=== PATIENT | male | born 1965 | race Caucasian/White ===

== ENCOUNTER 2017-10-29 07:03 | Day surgery (SDC) | payer OTHER ==
[2017-10-27 15:21] VITALS: BMI 33.9
[2017-10-29] MEDS ORDERED: DEXAMETHASONE SOD PHOSPHATE/PF 10 MG/ML SDV ONE (09:34)
[2017-10-29] MEDS ORDERED: ROPIVACAINE HCL 0.5% 30ML VIAL ONE (09:34)
[2017-10-29] MEDS ORDERED: MIDAZOLAM HCL 2 MG/2 ML SINGLE DOSE VIAL ONE (09:34)
[2017-10-29] MEDS ORDERED: PROPOFOL 20 ML ONE (10:08)
[2017-10-29] MEDS ORDERED: ONDANSETRON 4 MG/2 ML VIAL IVPUSH PRN (10:30)
[2017-10-29] MEDS ORDERED: LACTATED RINGERS SOLUTION 1,000 ML IV SCH (10:30)
[2017-10-29] MEDS ORDERED: PROMETHAZINE HCL 25 MG/1 ML VIAL IVPUSH PRN (10:30)
[2017-10-29] MEDS ORDERED: oxyCODONE HCL 5 MG TABLET PO PRN (10:30)
[2017-10-29] MEDS ORDERED: ceFAZolin SODIUM 1 GM VIAL ONE (10:31)
[2017-10-29] MEDS ORDERED: ONDANSETRON 4 MG/2 ML VIAL ONE ×2 (10:52→12:28)
[2017-10-29] MEDS ORDERED: DEXAMETHASONE SOD PHOSPHATE 4 MG/1 ML VIAL ONE (10:52)
[2017-10-29] MEDS ORDERED: KETOROLAC TROMETHAMINE 30 MG/1 ML VIAL ONE (10:52)
[2017-10-29] MEDS ORDERED: oxyCODONE HCL 5 MG TABLET ONE (13:53)
[2017-10-29 14:52] VITALS: BP 142/91; PULSE 95; TEMP 98.2
--- NOTE | 2017-10-31 23:18 | OP ---
DATE OF OPERATION: 10/29/2017 SURGEON: Fareed Price MD MOOSE HUNTER: NACHO Reynolds PREOPERATIVE DIAGNOSIS: 1. Left shoulder rotator cuff tear. 2. Left shoulder adhesive capsulitis. 3. Left shoulder impingement syndrome. 4. Left shoulder acromioclavicular degenerative joint disease. 5. Left shoulder superior labral tear with anterior and posterior synovitis. 6. Left shoulder long head biceps tear. POSTOPERATIVE DIAGNOSIS: 1. Left shoulder rotator cuff tear. 2. Left shoulder adhesive capsulitis. 3. Left shoulder impingement syndrome. 4. Left shoulder acromioclavicular degenerative joint disease. 5. Left shoulder superior labral tear with anterior and posterior synovitis. 6. Left shoulder long head biceps tear. PROCEDURE: 1. Left shoulder arthroscopy with arthroscopic rotator cuff repair. 2. Left shoulder arthroscopy with biceps tendon repair. 3. Left shoulder arthroscopy with lysis of adhesions. 4. Left shoulder arthroscopy with subacromial decompression. 5. Left shoulder arthroscopy with resection of the clavicle-acromioclavicular joint. 6. Left shoulder arthroscopy with debridement. CPT codes 27794, 64605, 00984, 38675, 10049, 56264. FINDINGS: 1. Extensive tearing of biceps tendon with anterior dislocation. 2. Glenohumeral synovitis. 3. Superior labral, anterior and posterior with type 1 and type 4 portions of tearing. 4. Full-thickness supraspinatus rotator cuff tear. 5. Posterior labral fraying. 6. Type 2 acromion and anterior and lateral spurring. 7. Inferior superior clavicle-acromioclavicular degenerative joint disease. 8. Diffuse and thickened scar tissue and adhesions anterior and lateral subacromial space. REPAIR TYPE: Suture was placed into the biceps tendon and secured in biceps tendon, which was then released from the superior labrum and debrided. This was secured a bleeding bone bed and incorporated into the rotator cuff repair. Three mattress sutures were then placed into the rotator cuff and secured to bleeding bone bed using the Opus technique. This was then oversewn and incorporated into the biceps tendon. PROCEDURE: Informed consent was obtained. The patient was taken to the operating room where the upper extremity was prepped and draped in a sterile fashion. The shoulder was manipulated for a full range of motion. Posterior incision portal was made and directed to glenohumeral joint. Under direct visualization, an anterior incision and portal was made. Extensive synovitis, as well as chondral injuries throughout the glenohumeral joint were dbrided and removed. Any identified labral injuries, including superior labral tear, anterior and posterior, and anterior labrum torn portions were removed as well. Rotator cuff was visualized and noted to have full-thickness tear. The edges were debrided. Posterior incision portal was redirected to subacromial space where a lateral incision portal was made. Excessive and thickened scar tissue noted throughout the subacromial space, including bursal and scar tissue, were removed. The type 2 acromion was converted into a flattened type 1 using a katty for subacromial decompression. Distal inferior spur at the distal clavicle was also dbrided with the use of accessory portal in the AC joint. The edges of the rotator cuff were identified. Sutures were placed into the rotator cuff and secured using anchors throughout the greater tuberosity. Prior to securing, a bleeding bed was made using a small katty, creating a bleeding surface of the rotator cuff insertion. The shoulder was then drained. A single suture as placed on all portals and a sterile dressing was placed. The patient was transferred to the recovery room without complication. FAREED PRICE M.D. [id number]
--- NOTE | 2017-10-31 23:45 | OP ---
DATE OF OPERATION: 10/29/2017 NOTE: Please note this is a separate procedure. SURGEON: Fareed Price M.D. BUSINESS PARTNER: Kathy Reynolds PREOPERATIVE DIAGNOSIS: Left hip trochanteric bursa with thickened scar tissue and hematoma. POSTOPERATIVE DIAGNOSIS: Left hip trochanteric bursa with thickened scar tissue and hematoma. PROCEDURE: Irrigation and debridement of dorsal tissue with packing of wound and scraping of the bursa with excision. DESCRIPTION OF PROCEDURE: . Needle was placed into the hematoma to secure the entrance into the area. A 6-cm incision was made, split through the fascial layer, and the fluid was irrigated out of the hematoma among the bursa. A long curet was then placed into the area and scraped along the area to remove the chronic ritchie and to allow for healing. This was then irrigated with copious amounts of irrigation and packed with 1/2-inch Ioban to allow for drainage. Skin was closed with 2-0 nylon single interrupted sutures leaving the Ioban out of the wound. Sterile dressing was placed, and patient was transferred to recovery without complications. FAREED PRICE M.D. [id number]
--- NOTE | 2017-11-01 18:22 | PATH ---
Surgical Pathology Report Patient Name: KEVON PARISH [facility]. Rec. #: [id number] /Age/Gender: 1965 (Age: 52) / M Account: [id number] Location: [facility] AMBULATORY Taken: 10/29/2017 Received: 10/29/2017 Reported: 11/01/2017 Physicians: Fareed Bar M.D. Specimen(s) Received A: BURSA LEFT HIP B: LEFT SHOULDER SHAVINGS Clinical History Hematoma left hip, left rotator cuff tear Final Diagnosis A. HIP, LEFT, BURSA, EXCISION: FRAGMENTS OF FIBROCONNECTIVE TISSUE WITH ORGANIZING HEMORRHAGE, HISTIOCYTIC PROLIFERATION, AND REACTIVE CHANGES. B. SHOULDER SHAVINGS, LEFT, ARTHROSCOPY: FRAGMENTS OF BENIGN CARTILAGE, DENSE FIBROCONNECTIVE TISSUE, ADIPOSE TISSUE, AND SKELETAL MUSCLE. Electronically Signed Rose Leon M.D. Gross Description A. Received in formalin labeled "bursa left hip," is a 5.0 x 4.1 x 0.3 cm aggregate of hirsch-gordon, necrotic appearing soft tissue. Corporate Security Manager sections are submitted in one cassette. B. Received in formalin, labeled "left shoulder shavings," is a 4.0 x 3.8 x 0.4 cm. aggregate of hirsch-yellow soft tissue fragments. A territory representative portion is submitted in one cassette. /10/29/2017 saudi10/29/2017
== END 2017-10-29 14:53 | disposition home or self-care (01) ==
LOC: FASU 07:03
PROVIDERS: ATTEND Orthopaedic Surgery
PROC: 0RNK4ZZ Release Left Shoulder Joint, Percutaneous Endoscopic Approach (ICD-10-PCS; 2017-10-29)
PROC: 0PBB4ZZ Excision of Left Clavicle, Percutaneous Endoscopic Approach (ICD-10-PCS; 2017-10-29)
PROC: 0RBK4ZZ Excision of Left Shoulder Joint, Percutaneous Endoscopic Approach (ICD-10-PCS; 2017-10-29)
PROC: 0JBM0ZZ Excision of Left Upper Leg Subcutaneous Tissue and Fascia, Open Approach (ICD-10-PCS; 2017-10-29)
PROC: 0LQ24ZZ Repair Left Shoulder Tendon, Percutaneous Endoscopic Approach (ICD-10-PCS; principal; 2017-10-29 09:00)
PROC: 0LS24ZZ Reposition Left Shoulder Tendon, Percutaneous Endoscopic Approach (ICD-10-PCS; 2017-10-29 09:00)
DX: M75.102 Unspecified rotator cuff tear or rupture of left shoulder, not specified as traumatic (principal); M75.02 Adhesive capsulitis of left shoulder; M75.42 Impingement syndrome of left shoulder; M19.012 Primary osteoarthritis, left shoulder; M24.112 Other articular cartilage disorders, left shoulder; M65.812 Other synovitis and tenosynovitis, left shoulder; M66.822 Spontaneous rupture of other tendons, left upper arm; M79.81 Nontraumatic hematoma of soft tissue; L90.5 Scar conditions and fibrosis of skin; M70.62 Trochanteric bursitis, left hip
CPT/HCPCS: 88304-TC; 94760